=== PATIENT | female | born 1965 | race Caucasian/White ===

== ENCOUNTER 2016-11-02 13:58 | Emergency (ER) | payer OTHER ==
[2016-11-02 14:13] VITALS: BP 108/74
--- NOTE | 2016-11-02 14:27 | UC ---
UC General HPI - HPI Summary HPI Summary: complaint of lump in the left side of groin that she noticed it this morning not painful unless pushed on worried about having a hernia because she was doing some heavy lifting going to [place] tomorrow for 3 weeks so wants a checked denies dysuria, fever denies vaginal discharge, going through menopause using a steroid cream denies abdominal pain, N/V/D, normal stool - History of Current Complaint Chief Complaint: [place] Stated Complaint: HERNIA-TYPE COMPLAINT Time Seen by Provider: 11/02/16 14:18 Hx Obtained From: Patient - Allergy/Home Medications Allergies/Adverse Reactions: Allergies Allergy/AdvReac Type Severity Reaction Status Date / Time Diphenhydramine Allergy Altered Verified 06/25/16 15:05 [From Benadryl] Mental Status Penicillins Allergy Nausea And Verified 11/02/16 14:09 Vomiting PMH/Surg Hx/FS Hx/Imm Hx Previously Healthy: Yes Endocrine History Of: Denies: Diabetes, Thyroid Disease Cardiovascular History Of: Denies: Cardiac Disorders, Hypertension, Pacemaker/ICD Respiratory History Of: Denies: COPD, Asthma GI/ History Of: Denies: Ulcer, Renal Disease - Surgical History Surgical History: Yes Surgery Procedure, Year, and Place: Lt KNEE-REPAIR MMT (2 SURGERIES) 15 YRS AGO - Family History Known Family History: Negative: Cardiac Disease, Hypertension, Diabetes - Social History Occupation: Employed Full-time Lives: With Family Alcohol Use: None Substance Use Type: None Smoking Status (MU): Former Smoker Type: Cigarettes Have You Smoked in the Last Year: No - Immunization History Most Recent Influenza Vaccination: 2015/2016 Review of Systems Constitutional: Negative Skin: Negative Eyes: Negative ENT: Negative Respiratory: Negative Cardiovascular: Negative Gastrointestinal: Negative Genitourinary: Negative Motor: Negative Neurovascular: Negative Musculoskeletal: Negative Neurological: Negative Psychological: Negative All Other Systems Reviewed And Are Negative: Yes Physical Exam Triage Information Reviewed: Yes Appearance: No Pain Distress, Well-Nourished Vital Signs: Initial Vital Signs Temp 99.4 F 11/02/16 14:04 Pulse 79 11/02/16 14:04 Resp 18 11/02/16 14:04 BP 108/74 11/02/16 14:04 Pulse Ox 98 11/02/16 14:04 Vital Signs Reviewed: Yes Eyes: Positive: Conjunctiva Clear ENT: Positive: Pharynx normal, TMs normal. Negative: Nasal congestion Neck: Positive: Supple Respiratory: Positive: Lungs clear, Normal breath sounds, No respiratory distress, No accessory muscle use Cardiovascular: Positive: RRR, No Murmur, Pulses Normal Abdomen Description: Positive: Nontender, No Organomegaly, Soft Bowel Sounds: Positive: Present Musculoskeletal: Positive: No Edema Neurological Exam: Normal Psychological Exam: Normal Skin Exam: Other - left inguinal lymphadenopathy Course/Dx - Differential Dx - Multi-Symptom Differential Diagnoses: Other - lymphadenopathy,, hernis Provider Diagnoses: left inguinal lymphadenopathy Discharge - Discharge Plan Condition: Stable Disposition: HOME Patient Education Materials: Lymphadenopathy (ED) Referrals: Patrice Parikh MD [Primary Care Provider] - Additional Instructions: Increase fluids and rest Take acetaminophen or ibuprofen for fever or pain Please review your discharge instructions. If your symptoms do not improve please call your primary care provider or return to urgent care.
== END 2016-11-02 14:45 | disposition home or self-care (01) ==
LOC: UCEAST 13:58
DX: R59.0 Localized enlarged lymph nodes (principal)
CPT/HCPCS: 99211; G0463